=== PATIENT | male | born 1960 | race Caucasian/White ===

== ENCOUNTER → 2017-11-12 | Day surgery (SDC) | payer OTHER ==
[~2017-11-12] VITALS: Ht 175.3 cm; Wt 81.6 kg
[~2017-11-12] MED LIST: ROXICODONE5 M1 PO
--- NOTE | 2017-11-12 13:26 | Operative Report ---
Operative/Inv Procedure Report Surgery Date: 11/12/17 Name of Procedure: Robotic repair of bilateral inguinal hernias with 3-D Max medium mesh, TAP Pre-Operative Diagnosis: Bilateral inguinal hernias left is incarcerated Post-Operative Diagnosis: Same, indirect left is incarcerated Estimated Blood Loss: scant Surgeon/Entry Level Buyer: Abdullahi ZIEGLER,Terrence Benítez PA-C Anesthesia: general endotracheal tube IV Fluids: 1 L crystalloid Implants: 3-D Max medium mesh left and right Drains: None Specimens: None Complications: None Condition: Excellent to PACU stable Operative Indication: Devin is a 57-year-old gentleman with bilateral inguinal hernias for at least 2 years And increasing in size. The left side has recently been partially incarcerated. He presents for bilateral robotic repairs Operative/Procedure Note Note: The patient's taken to the operating room placed on the operating table in supine position. Following an awake timeout he underwent uneventful induction of general endotracheal anesthesia. Arms were tucked by his side Venodyne boots in place and received Ancef 2 g IV prior to skin incision. The lower abdomen and groin was then clipped widely of hair prepped with DuraPrep and then draped usual sterile fashion including Ioban. Now local anesthetic was infiltrated in the super umbilical area where curvilinear incision was made and carried down to the fascia. Fascia was opened vertically for short distance to expose the preperitoneal fat. Stay sutures were placed on the fascia. The preperitoneal fat was elevated to expose the peritoneum which was incised carefully to gain entry safely into the peritoneal cavity. Finger sweep revealed there were no adhesions so at 12 mm aerocele Russo port was placed and pneumoperitoneum achieved. The da Luke 8 mm xi 30 scope was inserted. One could see bilateral inguinal hernias on the left side the colon exiting out the indirect defect both sides were clearly indirect defects. We placed an 8 mm port just at the level of the supraumbilical port out laterally on the right and then to 8 mm ports laterally on the left side all under direct vision after infiltrating local anesthetic. The patient was placed in Trendelenburg position 15. Now the xi robot was docked and targeted at the midline pubis. Fenestrated bipolar was placed in through in arm 3 with a Piyush in arm for and a monopolar mely in arm 1. Beginning on the right side I created a peritoneal flap 4 and half centimeters up from the apex of the internal ring. I could see the epigastric vessels well through the peritoneum and these were preserved. The flap was created out laterally curving slightly downward and then medially medial umbilical ligament which was partially divided. Carried the flap down medially until I could visualize the pubic ramus and worked medial medially to visualize the symphysis pubis. There was a nice areolar plane between the preperitoneal fat and the bone which dissected nicely. Laterally I preserved some of the preperitoneal fat on the lateral musculature and began to work on the large indirect hernia sac. Traction on the sac and began to dissected off of the fascia of the in internal ring and used the fourth arm to help assist in the traction as the sac was very long at least 12 cm. I was able to identify the dome of the sac and free it off of the cord and deliver the peritoneum out of the internal ring and then dissected off the cord. Medially just in front of the epigastric vessels it was adherent to the well-developed posterior fascia and extended further inferiorly than usual and freeing this allowed for the sac to move off the cord and expose the medial deviation of the vas. This plane was kept in continuity now with the dissection along the ramus and I carried out laterally as well. Was no injury to the cord and no holes in the peritoneum. Attention was turned towards the left side. Here the sigmoid colon exiting out the internal ring. The some traction on some epiploicae helped keep this reduced and then created a mirror flap in the same fashion. Both planes met at the symphysis pubis which was well seen. Here the sac was even larger at least 15 cm and the cord was more splayed out and adherent on the backside. There was some bleeding on the sac side and some small vessels that were divided as the sac was rolled forward the integrity the cord was preserved and there was no bleeding or hematoma around the cord structures. As on the right side, I freed it off of the severe fascia behind the epigastric vessels so that the sac rolled away from the vessels and the edge of the defect and was in continuity with the plane behind the ramus. I now measured the space and been created which were perfect 4 AM medium 3-D max meshes. Right and left meshes were inserted and placed into their respective spaces where they fit nicely that any buckling or folding. The each cover the entire myopectineal orifice and overlap the symphysis slightly I used a 2-0 Tycron suture in interrupted fashion to place a suture both medial and lateral to the epigastric vessels into the lower abdominal wall just to hold the mesh in place. The inferior edge of the mesh sat nicely above the previously dissected line of peritoneum and now I closed the flaps on each side with a 20V lock absorbable running suture. Each flap was separate from each other so the midline was preserved. Now the robot was undocked and then the ports removed under direct vision which were hemostatic. We released the pneumo completely enclose the fascia with 2 [id number] sutures of 0 Maxon at the umbilicus and then used 3-0 Vicryl on the subcutaneous at the umbilicus followed by 4-0 Monocryl running subcutaneous tic or skin closures. Sterile strips 4 x 4's and OpSite were placed. Devin tolerated the procedure well was taken to the recovery room in satisfactory condition extubated all sponge needle entry counts [place] correct 2 completion of the case. Was no subcutaneous emphysema but as expected there was some pneumo scrotum bilaterally. Findings: Giant bilateral indirect defects left side containing sigmoid colon which was incarcerated but reducible with traction. Direct space is normal. Small lipoma on left. Discharge Disposition: PACU
== END ==
LOC: STS 01:51
DX: K40.30 Unilateral inguinal hernia, with obstruction, without gangrene, not specified as recurrent (principal); K40.90 Unilateral inguinal hernia, without obstruction or gangrene, not specified as recurrent; M19.90 Unspecified osteoarthritis, unspecified site
CPT/HCPCS: 49650; S2900; C1781; J0690; J2250; J3490